=== PATIENT | female | born 1940 | race Caucasian/White ===

== ENCOUNTER 2017-08-04 08:13 | Observation (INO) | payer OTHER ==
[~2017-08-04] VITALS: Ht 154.9 cm; Wt 103.0 kg
[2017-08-04 08:41] LABS: BASOPHIL (%) 0.4 % (0-1); EOSINOPHIL (%) 0.6 % (0-5); HEMATOCRIT 32.7 % (36.0-46.0); HEMOGLOBIN 11.3 G/DL (11.9-15.5); IMMATURE GRANULOCYTE (%) 0.2 % (0.0-0.7); LYMPHOCYTE (%) 18.2 % (15-42); MCH 29.6 PG (29.0-34.0); MCHC 34.6 G/DL (30.0-36.0); MCV 85.6 FL (83-99); MONOCYTE (%) 8.9 % (3-12); MONOCYTE COUNT 0.5 K/uL (0-0.8); NEUTROPHIL (%) 71.7 % (45-76); NEUTROPHIL COUNT 3.9 K/uL (1.8-6.4); PLATELET COUNT 175 K/uL (156-360); RBC DIS.WIDTH-CV 13.3 % (11.8-14.6); RBC DIS.WIDTH-SD 41.2 % (39-53); RED BLOOD COUNT 3.82 M/uL (3.80-5.20); WHITE BLOOD COUNT 5.4 K/uL (4.1-10.2)
[2017-08-04 08:50] LABS: CHLORIDE 101 mEq/L (99-109); POTASSIUM 4.6 mEq/L (3.7-5.4); SODIUM 133 mEq/L (136-147)
[2017-08-04 08:51] LABS: GLUCOSE 131 mg/dL (70-99)
[2017-08-04 08:55] LABS: CREATININE 1.7 mg/dL (0.6-1.3); GFR ESTIMATE (CALCULATED) 31 mL/min/
[2017-08-04 08:56] LABS: UREA NITROGEN (BUN) 24 mg/dL (9-23)
[2017-08-04 09:01] LABS: TROP-I INTERPRETATION NEGATIVE; TROPONIN-I < 0.01 ng/mL (0.0-0.30)
[2017-08-04] MEDS ORDERED: BENZTROPINE MESY1 MG PO (09:32)
[2017-08-04] MEDS ORDERED: COGENTIN1 MG PO (09:33)
[2017-08-04] MEDS ORDERED: RISPERIDONE4 MG PO (09:34)
[2017-08-04] MEDS ORDERED: LORAZEPAM1 MG PO (09:34)
[2017-08-04] MEDS ORDERED: PAROXETINE HCL20 MG PO (09:34)
[2017-08-04] MEDS ORDERED: AMLODIPINE-BEN1 EAC3 PO (09:35)
[2017-08-04] MEDS ORDERED: ASPIRIN81 M2 PO (09:36)
[2017-08-04] MEDS ORDERED: PRAVASTATIN SOD80 MG PO (09:36)
[2017-08-04 10:53] LABS: APPEARANCE SL.HAZY ((CLEAR)); BILIRUBIN NEGATIVE; BLOOD NEGATIVE; COLOR YELLOW ((YELLOW)); GLUCOSE (STRIP) NEGATIVE; KETONES NEGATIVE; LEUKOCYTES MODERATE; NITRITE NEGATIVE; PROTEIN (STRIP) NEGATIVE; SPECIFIC GRAVITY 1.005 (1.000-1.030); UROBILINOGEN 0.2 MG/DL (0.2-1.0)
[2017-08-04 11:04] VITALS: BP 171/71
[2017-08-04 11:05] LABS: BACTERIA RARE /HPF; EPITHELIAL CELLS 3+ /HPF; MUCUS TRACE /LPF; RED BLOOD CELLS 0-5 /HPF (0-5); UCUL ADDED? YES; WHITE BLOOD CELLS 15-20 /HPF (0-5)
[2017-08-04 15:37] LABS: TROP-I INTERPRETATION NEGATIVE; TROPONIN-I < 0.01 ng/mL (0.0-0.30)
[2017-08-04 16:46] VITALS: BP 138/66
[2017-08-04 19:56] VITALS: BP 113/58
[2017-08-04 21:29] LABS: TROP-I INTERPRETATION NEGATIVE; TROPONIN-I < 0.01 ng/mL (0.0-0.30)
[2017-08-05 00:05] VITALS: BP 129/63
[2017-08-05 03:34] VITALS: BP 136/60
[2017-08-05 06:12] LABS: CHLORIDE 109 MEQ/L (99-109); GFR ESTIMATE (CALCULATED) 47 mL/min/; GLUCOSE 99 mg/dL (70-99); POTASSIUM 4.1 MEQ/L (3.7-5.4); SODIUM 136 MEQ/L (136-147); UREA NITROGEN (BUN) 18 mg/dL (9-23)
[2017-08-05 06:33] LABS: CREATININE 1.2 MG/DL (0.6-1.3)
[2017-08-05 07:19] VITALS: BP 130/60
[2017-08-05 11:01] VITALS: BP 141/63
== END 2017-08-05 14:24 | disposition home or self-care (01) ==
LOC: EME 08:13 → 5WEST 09:22 → ENRESERV 09:22 → EDOF 09:22 → ENRESERV 09:40 → 5WEST 10:42 → ENPENDDIS 08-05 → 5WEST 08-05 14:24
PROVIDERS: Emergency Medicine; Internal Medicine
DX: R55 Syncope and collapse (principal); I95.1 Orthostatic hypotension; I10 Essential (primary) hypertension; F20.9 Schizophrenia, unspecified; E78.5 Hyperlipidemia, unspecified; N17.9 Acute kidney failure, unspecified; E86.0 Dehydration; E86.1 Hypovolemia; D64.9 Anemia, unspecified
CPT/HCPCS: 71045; 80048; 81003; 84484; 85025; 87086; 93005; 93306; 99281; 99284; G0378; J1644; J7030

== ENCOUNTER 2017-12-19 15:07 | Inpatient (IN) | payer OTHER ==
[~2017-12-19] VITALS: Ht 162.6 cm; Wt 96.1 kg
[~2017-12-19 15:07] MED LIST: AMLODIPINE-BEN1 EAC3 PO; ASPIRIN81 M2 PO; BENZTROPINE MESY1 MG PO; COGENTIN1 MG PO; LORAZEPAM1 MG PO; PAROXETINE HCL20 MG PO; PRAVASTATIN SOD80 MG PO; RISPERIDONE4 MG PO
[2017-12-19] MEDS ORDERED: MOTRIN IB200 MG PO (15:23)
[2017-12-19 15:42] LABS: HEMATOCRIT 31.3 % (36.0-46.0); HEMOGLOBIN 10.8 G/DL (11.9-15.5); MCH 29.5 PG (29.0-34.0); MCHC 34.5 G/DL (30.0-36.0); MCV 85.5 FL (83-99); PLATELET COUNT 173 K/uL (156-360); RBC DIS.WIDTH-CV 13.2 % (11.8-14.6); RBC DIS.WIDTH-SD 41.3 % (39-53); RED BLOOD COUNT 3.66 M/uL (3.80-5.20)
[2017-12-19 15:50] LABS: CHLORIDE 101 mEq/L (99-109)
[2017-12-19 15:51] LABS: POTASSIUM 5.1 mEq/L (3.7-5.4); SODIUM 133 mEq/L (136-147)
[2017-12-19 15:52] LABS: GLUCOSE 141 mg/dL (70-99)
[2017-12-19 15:56] LABS: CREATININE 1.9 mg/dL (0.6-1.3); GFR ESTIMATE (CALCULATED) 27 mL/min/
[2017-12-19 15:57] LABS: UREA NITROGEN (BUN) 34 mg/dL (9-23)
[2017-12-19 16:04] LABS: TROP-I INTERPRETATION NEGATIVE; TROPONIN-I 0.02 ng/mL (0.0-0.30)
[2017-12-19 22:05] LABS: POTASSIUM 4.4 mEq/L (3.7-5.4)
[2017-12-19 22:18] LABS: TROP-I INTERPRETATION NEGATIVE; TROPONIN-I 0.02 ng/mL (0.0-0.30)
[2017-12-19 22:23] VITALS: BP 170/89
[2017-12-19 22:56] LABS: FOLIC ACID (FOLATE) 5.1 NG/ML (5.0-22.0)
[2017-12-19 23:05] LABS: IRON 41 MCG/DL (35-150); TRANSFERRIN (TIBC) 192.6 mg/dL (215-380); TRANSFERRIN SATUR. 21 % (20-55)
[2017-12-20 03:40] VITALS: BP 150/67
[2017-12-20 06:24] LABS: TROP-I INTERPRETATION NEGATIVE; TROPONIN-I 0.01 ng/mL (0.0-0.30)
[2017-12-20 06:35] LABS: BASOPHIL (%) 0.4 % (0-1); EOSINOPHIL COUNT 0.1 K/uL (0-0.3); HEMOGLOBIN 10.9 G/DL (11.9-15.5); IMMATURE GRANULOCYTE (%) 0.4 % (0.0-0.7); LYMPHOCYTE (%) 25.2 % (15-42); LYMPHOCYTE COUNT 1.3 K/uL (1.0-2.8); MCH 29.1 PG (29.0-34.0); MCHC 34.1 G/DL (30.0-36.0); MCV 85.3 FL (83-99); MONOCYTE (%) 8.7 % (3-12); MONOCYTE COUNT 0.4 K/uL (0-0.8); NEUTROPHIL (%) 64.3 % (45-76); NEUTROPHIL COUNT 3.3 K/uL (1.8-6.4); PLATELET COUNT 180 K/uL (156-360); RBC DIS.WIDTH-CV 13.2 % (11.8-14.6); RBC DIS.WIDTH-SD 41.6 % (39-53); RED BLOOD COUNT 3.75 M/uL (3.80-5.20); WHITE BLOOD COUNT 5.1 K/uL (4.1-10.2)
[2017-12-20 06:40] LABS: CHLORIDE 105 MEQ/L (99-109); GFR ESTIMATE (CALCULATED) 42 mL/min/; GLUCOSE 107 mg/dL (70-99); POTASSIUM 3.9 MEQ/L (3.7-5.4); SODIUM 138 MEQ/L (136-147); UREA NITROGEN (BUN) 24 mg/dL (9-23)
[2017-12-20 06:42] LABS: CREATININE 1.3 MG/DL (0.6-1.3)
[2017-12-20 08:50] LABS: FERRITIN 100 NG/ML (10-291)
[2017-12-20 11:25] VITALS: BP 105/52
[2017-12-20 16:15] VITALS: BP 179/79
[2017-12-20 17:08] LABS: APPEARANCE SL.HAZY ((CLEAR)); BILIRUBIN NEGATIVE; BLOOD NEGATIVE; COLOR YELLOW ((YELLOW)); GLUCOSE (STRIP) NEGATIVE; KETONES NEGATIVE; LEUKOCYTES MODERATE; NITRITE NEGATIVE; PROTEIN (STRIP) NEGATIVE; SPECIFIC GRAVITY 1.009 (1.000-1.030); UROBILINOGEN 0.2 MG/DL (0.2-1.0)
[2017-12-20 17:21] LABS: BACTERIA RARE /HPF; EPITHELIAL CELLS 1+ /HPF; HYALINE CASTS 0-5 /LPF; MUCUS NONE SEEN /LPF; RED BLOOD CELLS 0-5 /HPF (0-5); WHITE BLOOD CELLS 15-20 /HPF (0-5)
[2017-12-20 20:17] VITALS: BP 180/74
[2017-12-20 20:26] VITALS: BP 151/71
[2017-12-20 20:32] VITALS: BP 138/59
[2017-12-21] VITALS (10 sets, daily range): BP systolic 110–193; BP diastolic 51–79
[2017-12-21 07:59] LABS: HEMATOCRIT 30.4 % (36.0-46.0); HEMOGLOBIN 10.2 G/DL (11.9-15.5); MCH 28.9 PG (29.0-34.0); MCHC 33.6 G/DL (30.0-36.0); MCV 86.1 FL (83-99); PLATELET COUNT 173 K/uL (156-360); RBC DIS.WIDTH-CV 13.6 % (11.8-14.6); RBC DIS.WIDTH-SD 42.4 % (39-53); RED BLOOD COUNT 3.53 M/uL (3.80-5.20); WHITE BLOOD COUNT 4.6 K/uL (4.1-10.2)
[2017-12-21 08:29] LABS: ALBUMIN 3.2 G/DL (3.2-4.8); ALKALINE PHOSPHATASE 35 IU/L (3-129); ALT (GPT) 7 IU/L (3-49); AST (GOT) 11 IU/L (2-34); CHLORIDE 105 MEQ/L (99-109); CREATININE 1.1 MG/DL (0.6-1.3); GFR ESTIMATE (CALCULATED) 51 mL/min/; GLUCOSE 122 mg/dL (70-99); POTASSIUM 3.9 MEQ/L (3.7-5.4); SODIUM 135 MEQ/L (136-147); TOTAL BILIRUBIN 0.4 MG/DL (0.0-1.0); TOTAL PROTEIN 5.3 G/DL (6.4-8.3); UREA NITROGEN (BUN) 16 mg/dL (9-23)
[2017-12-22 04:00] VITALS: BP 126/88
[2017-12-22 08:47] VITALS: BP 158/72
[2017-12-22 16:01] VITALS: BP 147/62
[2017-12-22 19:35] VITALS: BP 185/77
[2017-12-22 23:40] VITALS: BP 176/95
[2017-12-23 02:00] VITALS: BP 128/66
[2017-12-23] MEDS ORDERED: AMLODIPINE BES2.5 MG PO (06:55)
[2017-12-23] MEDS ORDERED: RISPERDAL2 MG PO (06:56)
[2017-12-23] MEDS ORDERED: FOLIC ACID1 MG PO (06:56)
[2017-12-23] MEDS ORDERED: OMNICEF300 MG PO (06:58)
[2017-12-23 08:09] VITALS: BP 146/67
== END 2017-12-23 14:55 | DRG 683 ==
LOC: EME 15:07 → 2EAST 18:58 → EDOF 18:58 → ENRESERV 19:19 → 2EAST 19:46 → ENPENDDIS 12-23 14:39 → 2EAST 12-23 14:55
PROVIDERS: Emergency Medicine; Internal Medicine
DX: N17.9 Acute kidney failure, unspecified (principal); E86.0 Dehydration; E87.1 Hypo-osmolality and hyponatremia; N39.0 Urinary tract infection, site not specified; D64.9 Anemia, unspecified; R41.82 Altered mental status, unspecified; T44.3X5A Adverse effect of other parasympatholytics [anticholinergics and antimuscarinics] and spasmolytics, initial encounter; T43.595A Adverse effect of other antipsychotics and neuroleptics, initial encounter; R04.0 Epistaxis; T45.515A Adverse effect of anticoagulants, initial encounter; R26.9 Unspecified abnormalities of gait and mobility; R29.6 Repeated falls; Z91.81 History of falling; I10 Essential (primary) hypertension; E78.5 Hyperlipidemia, unspecified; F20.9 Schizophrenia, unspecified; F32.9 Major depressive disorder, single episode, unspecified
CPT/HCPCS: 70450; 70551; 80048; 80053; 81003; 82272; 82607; 82728; 82746; 83540; 84132 91; 84466; 84484; 85025; 85027; 93005; 93880; 97530 GO; 97530 GP; 99281; 99285; J0360; J0696; J1644; J3420; J7030